=== PATIENT | male | born 1965 | race Asian ===

== ENCOUNTER 2016-07-27 14:29 | Inpatient (IN) | payer OTHER ==
[~2016-07-27] VITALS: Ht 167.6 cm; Wt 75.3 kg
[~2016-07-27 14:29] MED LIST: ALLO300T PO; SOTA120T14 PO; TENO300T2 PO; TRIA1CAP PO; [UNRECOGNIZED DRUG - OTHER] PO
[2016-07-27] MEDS ORDERED: ASPIRIN 81 MG TABLET CHEW ONE (15:02)
[2016-07-27] MEDS ORDERED: SODIUM CHLORIDE 0.9% 1,000 ML IV ONE (15:06)
[2016-07-27] MEDS ORDERED: SODIUM CHLORIDE FLUSH 10ML SYR IVF ONE (15:30)
[2016-07-27] MEDS ORDERED: ASPIRIN 81 MG TABLET CHEW PO ONE (15:30)
[2016-07-27] MEDS ORDERED: MAGNESIUM SULFATE 1 GM in SODIUM CHLORIDE 0.9% 50 ML IVPB ONE (15:30)
[2016-07-27 15:57] LABS: ASPARTATE AMINO TRANSFERASE 31 U/L (15-37); BLOOD UREA NITROGEN 22 mg/dL (7-18)
[2016-07-27] MEDS ORDERED: AMIODARONE 150 MG in DEXTROSE 5% 100 ML IV ONE (17:00)
[2016-07-27] MEDS ORDERED: FILTER 0.22 MICRON FOR AMIODARONE IV PRN (17:00)
[2016-07-27] MEDS ORDERED: SODIUM CHLORIDE FLUSH 10ML SYR IVF PRN (17:00)
[2016-07-27] MEDS ORDERED: BISACODYL 10 MG SUPP PR PRN (17:30)
[2016-07-27] MEDS ORDERED: morphine SULFATE 10 MG/ML, 1ML IVPush PRN (17:30)
[2016-07-27] MEDS ORDERED: POLYETHYLENE GLYCOL 17 GM PACKET PO PRN (17:30)
[2016-07-27] MEDS ORDERED: ACETAMINOPHEN 325 MG TABLET PO PRN (17:30)
[2016-07-27] MEDS ORDERED: DOCUSATE 100 MG CAPSULE PO PRN (17:30)
[2016-07-27 18:20] VITALS: BP 143/87
[2016-07-27 18:33] LABS: IS PT STATUS REG ER OR PRE ER? NO
[2016-07-27 21:04] VITALS: BP 141/92
[2016-07-27] MEDS: ENOXAPARIN 40 MG/0.4 ML SQ SCH (21:17)
[2016-07-27] MEDS: SODIUM CHLORIDE 0.9% 1,000 ML IV SCH (21:18)
[2016-07-27 23:37] LABS: IS PT STATUS REG ER OR PRE ER? NO
[2016-07-28] MEDS ORDERED: SOTALOL 120MG TABLET PO SCH ×2 (00:30→18:00)
[2016-07-28 00:56] VITALS: BP 134/76
[2016-07-28] MEDS: SODIUM CHLORIDE 0.9% 1,000 ML IV SCH (04:07)
[2016-07-28 06:23] LABS: ASPARTATE AMINO TRANSFERASE 23 U/L (15-37); BLOOD UREA NITROGEN 16 mg/dL (7-18)
[2016-07-28] MEDS: MEXILETINE 150 MG CAPSULE PO SCH (21:00)
[2016-07-28] MEDS: HYDROCHLOROTHIAZIDE 12.5 MG CAPSULE PO SCH (21:00)
[2016-07-28] MEDS: VALSARTAN 320 MG TABLET PO SCH (21:00)
[2016-07-29 06:44] VITALS: BP 122/78
[2016-07-29] MEDS: ALLOPURINOL 300 MG TABLET PO SCH ×2 (09:00→10:00)
[2016-07-29] MEDS: TENOFOVIR 300MG TABLET PO SCH ×2 (09:00→10:00)
[2016-07-29] MEDS: MEXILETINE 150 MG CAPSULE PO SCH ×3 (09:00→21:34)
[2016-07-29 15:30] VITALS: BP 135/93
[2016-07-29] MEDS: AMIODARONE 200 MG TABLET PO SCH ×2 (16:53→21:34)
[2016-07-29] MEDS: ENOXAPARIN 40 MG/0.4 ML SQ SCH ×2 (16:53→17:30)
[2016-07-29 20:40] VITALS: BP 143/88
[2016-07-29] MEDS: VALSARTAN 320 MG TABLET PO SCH (21:34)
[2016-07-29] MEDS: HYDROCHLOROTHIAZIDE 12.5 MG CAPSULE PO SCH (21:34)
[2016-07-30 02:09] VITALS: BP 121/78
[2016-07-30 05:24] LABS: BLOOD UREA NITROGEN 19 mg/dL (7-18)
[2016-07-30 07:55] VITALS: BP 122/82
[2016-07-30] MEDS: TENOFOVIR 300MG TABLET PO SCH (07:57)
[2016-07-30] MEDS: MEXILETINE 150 MG CAPSULE PO SCH ×2 (07:57→21:07)
[2016-07-30] MEDS: ALLOPURINOL 300 MG TABLET PO SCH (07:57)
[2016-07-30] MEDS: AMIODARONE 200 MG TABLET PO SCH ×3 (07:57→21:07)
[2016-07-30 12:49] VITALS: BP 126/86
[2016-07-30] MEDS: ENOXAPARIN 40 MG/0.4 ML SQ SCH (16:59)
[2016-07-30 19:30] VITALS: BP 124/85
[2016-07-30] MEDS: VALSARTAN 320 MG TABLET PO SCH (21:07)
[2016-07-30] MEDS: HYDROCHLOROTHIAZIDE 12.5 MG CAPSULE PO SCH (21:42)
[2016-07-31 01:52] VITALS: BP 117/80
[2016-07-31 07:31] VITALS: BP 120/80
[2016-07-31] MEDS: TENOFOVIR 300MG TABLET PO SCH (09:05)
[2016-07-31] MEDS: ALLOPURINOL 300 MG TABLET PO SCH (09:05)
[2016-07-31] MEDS: MEXILETINE 150 MG CAPSULE PO SCH ×2 (09:05→21:15)
[2016-07-31] MEDS: AMIODARONE 200 MG TABLET PO SCH ×3 (09:05→21:14)
[2016-07-31] MEDS ORDERED: FILTER 0.22 MICRON FOR AMIODARONE IV PRN (12:00)
[2016-07-31] MEDS ORDERED: AMIODARONE 150 MG in DEXTROSE 5% 100 ML IV ONE (12:00)
[2016-07-31 12:53] VITALS: BP 134/90
[2016-07-31] MEDS: ENOXAPARIN 40 MG/0.4 ML SQ SCH (16:41)
[2016-07-31 20:05] VITALS: BP 142/84
[2016-07-31 21:12] VITALS: BP 128/87
[2016-07-31] MEDS: VALSARTAN 320 MG TABLET PO SCH (21:14)
[2016-07-31] MEDS: HYDROCHLOROTHIAZIDE 12.5 MG CAPSULE PO SCH (21:15)
[2016-08-01 03:52] VITALS: BP 119/78
[2016-08-01 07:08] VITALS: BP 121/78
[2016-08-01] MEDS: TENOFOVIR 300MG TABLET PO SCH (08:34)
[2016-08-01] MEDS: MEXILETINE 150 MG CAPSULE PO SCH (08:34)
[2016-08-01] MEDS: ALLOPURINOL 300 MG TABLET PO SCH (08:35)
[2016-08-01] MEDS: AMIODARONE 200 MG TABLET PO SCH (08:35)
[2016-08-01] MEDS ORDERED: AMIO200T42 PO (13:24)
[2016-08-01 13:32] VITALS: BP 113/75
[2016-08-01] MEDS ORDERED: AMIODARONE 200 MG TABLET PO SCH (21:00)
== END 2016-08-01 15:42 | disposition home or self-care (01) | DRG 309 ==
LOC: ED 16:18 → EDIP 16:56 → 5SO 18:12 → DCLOUNGE 08-01 13:30
PROVIDERS: ADMIT Hospitalist; ATTEND Hospitalist
DX: I47.2 Ventricular tachycardia (principal); I42.8 Other cardiomyopathies; N17.9 Acute kidney failure, unspecified; R41.3 Other amnesia; E86.0 Dehydration; M10.9 Gout, unspecified; I45.81 Long QT syndrome; N18.3 Chronic kidney disease, stage 3 (moderate); R00.1 Bradycardia, unspecified; I12.9 Hypertensive chronic kidney disease with stage 1 through stage 4 chronic kidney disease, or unspecified chronic kidney disease; Z95.810 Presence of automatic (implantable) cardiac defibrillator; Z79.899 Other long term (current) drug therapy; Z86.19 Personal history of other infectious and parasitic diseases
CPT/HCPCS: 36415; 70450; 71010; 80048; 80053; 83735; 83880; 84100; 84436; 84443; 84484; 85025; 85610; 85730; 93005; 93306; 96361; 96365; J1650; J3475; J0282; J7030

== ENCOUNTER → 2016-09-10 | Outpatient (CLI) | payer OTHER ==
[~2016-09-10] MED LIST changes: +AMIO200T42 PO
== END | disposition home or self-care (01) ==
LOC: CFH 07:40
PROVIDERS: ATTEND Nurse Practitioner Family
DX: K76.0 Fatty (change of) liver, not elsewhere classified (principal)
CPT/HCPCS: 76700

== ENCOUNTER → 2016-09-19 | Outpatient (CLI) | payer OTHER | END | disposition home or self-care (01) | LOC: PETCFH 07:59 | PROVIDERS: ATTEND Nurse Practitioner Family | DX: K82.8 Other specified diseases of gallbladder (principal); B19.10 Unspecified viral hepatitis B without hepatic coma | CPT/HCPCS: 78227; A9537 ==

== ENCOUNTER 2016-10-07 08:30 | Day surgery (SDC) | payer OTHER ==
[2016-10-06 15:30] LABS: HEMATOCRIT 54.4 % (39.2-51.8); HEMOGLOBIN 17.6 g/dL (13.7-18.0); WHITE BLOOD COUNT 6.8 x10^3/uL (3.4-10)
[2016-10-06 15:40] LABS: ASPARTATE AMINO TRANSFERASE 29 U/L (15-37); BLOOD UREA NITROGEN 15 mg/dL (7-18)
[~2016-10-07] VITALS: Ht 167.6 cm; Wt 75.9 kg
[~2016-10-07 08:30] MED LIST changes: +MEXI150C PO; +TENO25TA PO
[2016-10-07] MEDS ORDERED: SODIUM CHLORIDE 0.9% 1,000 ML IV SCH (08:44)
[2016-10-07 08:47] VITALS: BP 154/94
[2016-10-07] MEDS ORDERED: PROPOFOL 10 MG/ML, 20ML ONE (10:15)
== END 2016-10-07 12:11 ==
LOC: CACL 08:30
PROVIDERS: ATTEND Internal Medicine Cardiovascular Disease
DX: I47.2 Ventricular tachycardia (principal); I10 Essential (primary) hypertension
CPT/HCPCS: 36415; 71020; 80053; 85025; 85610; 85730; 93005; 93642; J2704

== ENCOUNTER 2016-12-10 08:26 | Emergency (ER) | payer OTHER ==
[~2016-12-10] VITALS: Ht 167.6 cm; Wt 77.6 kg
[~2016-12-10 08:26] MED LIST changes: -TENO300T2 PO; +TENO300T5 PO
[2016-12-10] MEDS ORDERED: AMLO-287 PO (08:46)
[2016-12-10] MEDS ORDERED: SODIUM CHLORIDE 0.9% 1,000 ML IV ONE (09:08)
[2016-12-10 09:23] LABS: HEMATOCRIT 50.6 % (39.2-51.8); HEMOGLOBIN 17.2 g/dL (13.7-18.0); WHITE BLOOD COUNT 5.9 x10^3/uL (3.4-10)
[2016-12-10 09:34] LABS: ASPARTATE AMINO TRANSFERASE 36 U/L (15-37); BLOOD UREA NITROGEN 23 mg/dL (7-18)
[2016-12-10 09:39] LABS: IS PT STATUS REG ER OR PRE ER? YES
[2016-12-10 11:26] VITALS: BP 138/92
== END 2016-12-10 11:30 | disposition home or self-care (01) ==
LOC: ED 09:48
DX: I47.2 Ventricular tachycardia (principal)
CPT/HCPCS: 36415; 71020; 80053; 83735; 84100; 84484; 85025; 93005; 96360; 96361; 99285; J7030

== ENCOUNTER → 2017-01-14 | Outpatient (CLI) | payer OTHER ==
[~2017-01-14] MED LIST changes: +ACET325T14 PO; +AMLO-287 PO; +METO25TA35 PO; +[UNRECOGNIZED DRUG - CODE] IV
[2017-01-14 11:58] LABS: HEMATOCRIT 51.7 % (39.2-51.8); HEMOGLOBIN 17.4 g/dL (13.7-18.0); WHITE BLOOD COUNT 7.7 x10^3/uL (3.4-10)
[2017-01-14 12:18] LABS: BLOOD UREA NITROGEN 19 mg/dL (7-18)
[2017-01-14 12:22] LABS: ASPARTATE AMINO TRANSFERASE 33 U/L (15-37)
== END | disposition home or self-care (01) ==
LOC: STAR 10:36
PROVIDERS: ATTEND Internal Medicine Cardiovascular Disease
DX: Z01.811 Encounter for preprocedural respiratory examination (principal); I42.9 Cardiomyopathy, unspecified; I47.2 Ventricular tachycardia
CPT/HCPCS: 36415; 71020; 80053; 85025